=== PATIENT | male | born 1950 | race Caucasian/White ===

== ENCOUNTER 2018-08-19 17:23 | Inpatient (IN) | payer OTHER ==
--- NOTE | 2018-08-19 18:03 | PDOC ---
Attending Attestation - HPI HPI: 08/19/18 20:04 The patient is a 68 year old male, with a significant past medical history of bipolar disorder and depression, who presents to the ED complaining of fever, nausea, vomit and decreased appetite for the last week. He also reports that he has noticed decreased bowel movements and decreased PO intake during this time frame. She describes her vomit as nonbloody and nonbilious. The patient denies chest pain, shortness of breath, headache and dizziness. Denies dysuria, frequency, urgency and hematuria. Allergies: None Past surgical history: None reported Social History: Alcoohol use. - Physicial Exam PE: 08/19/18 20:04 Constitutional: Awake, alert, oriented. No acute distress. (+) Hot to touch. Head: Normocephalic. Atraumatic Eyes: PERRL. EOMI. Conjunctivae are not pale. ENT: (+) Dry Mucous membrane. Posterior pharynx without exudates or erythema. Uvula midline. Neck: Supple. Full ROM. No lymphadenopathy. Cardiovascular: (+) Tachycardia. Regular rhythm. S1, S2 regular. Distal pulses are 2+ and symmetric. Pulmonary/Chest: No evidence of respiratory distress. Clear to auscultation bilaterally No wheezing, rales or rhonchi. Abdominal: (+) Diffusely mildly tender. Soft and non-distended. No rebound, guarding or rigidity. No organomegaly. No palpable masses. Good bowel sounds. Back: No CVA tenderness. Musculoskeletal: No edema. No cyanosis. No clubbing. Full range of motion in all extremities. Nocalf tenderness. Radial/pedal pulses are intact and 2+ bilaterally Skin: Skin is warm and dry. No petechiae. No purpura. Neurological: Alert and oriented to person, place, and time. Cranial nerves II -XII are grossly intact. Normal speech. Strength is grossly symmetric. No sensory deficits. Psychiatric: Good eye contact. Normal interaction, affect and behavior. <Bebo Yanes - Last Filed: 08/19/18 20:04> - Resident Resident Name: Rebecca Gleason - ED Attending Attestation I have performed the following: I have examined & evaluated the patient, The case was reviewed & discussed with the resident, I agree w/resident's findings & plan, Exceptions are as noted - Critical Care Time Total Critical Care Time: 35 Critical Care Statement: The care of this patient involved high complexity decision making to prevent further life threatening deterioration of the patient 's condition and/or to evaluate & treat vital organ system(s) failure or risk of failure. - Medical Decision Making 08/19/18 18:03 I, Dr. Sun Schwab, DO, attest that this document has been prepared under my direction and personally reviewed by me in its entirety. I further attest, that it accurately reflects all work, treatment, procedures and medical decision -making performed by me. 08/19/18 19:07 a/p: 68yo male with hx of bipolar and FMF presents with a week of fever, n/v, decreased bm, decreased po intake -concern for FMF flair up vs viral syndrome vs bowel obstruction -will send cultures, labs, ekg, cxr, ct abd/pelvis -will start ivf hydration -will send flu -will monitor and reassess 08/19/18 19:17 no acute findings on cxr labs pending 08/19/18 23:25 pt with SIRS upon arrival pt with UTI pt with ff in the intraabd cavity pt with hx of FMF SEPSIS from UTI and FMF will admit and place on IV abx 08/19/18 23:25 pt updated on labs and imaging will admit to [facility] 08/19/18 23:48 case discussed with [facility] who accepts the patient to service <Sun Schwab - Last Filed: 08/19/18 23:48>
[2018-08-19] MEDS ORDERED: SODIUM CHLORIDE 0.9% 1000 ML INFUS.BAG IV STA (18:23)
--- NOTE | 2018-08-19 18:23 | PDOC ---
History of Present Illness <Rebecca Gleason - Last Filed: 08/19/18 18:23> <Sun Schwab - Last Filed: 08/19/18 23:27> - General Chief Complaint: SIRS, Suspected/Possible Stated Complaint: FAMILIAL MEDIETRRANEAN FEVER Time Seen by Provider: 08/19/18 18:02 Past History - Past Medical History COPD: No CHF: No Psychiatric Problems: Yes (bipolar and depression) - Suicide/Smoking/Psychosocial Hx Smoking History: Never smoked Have you smoked in the past 12 months: No Number of Cigarettes Smoked Daily: 2 Information on smoking cessation initiated: No Hx Alcohol Use: No Drug/Substance Use Hx: No Substance Use Type: Alcohol <Rebecca Gleason - Last Filed: 08/19/18 18:23> <Sun Schwab - Last Filed: 08/19/18 23:27> - Past Medical History Allergies/Adverse Reactions: Allergies Allergy/AdvReac Type Severity Reaction Status Date / Time No Known Allergies Allergy Verified 08/19/18 17:42 *Physical Exam - Vital Signs Last Vital Signs Temp Pulse Resp BP Pulse Ox 102.1 F H 95 H 16 136/73 100 08/19/18 17:23 08/19/18 17:23 08/19/18 17:23 08/19/18 17:23 08/19/18 17:23 <Rebecca Gleason - Last Filed: 08/19/18 18:23> - Vital Signs Last Vital Signs Temp Pulse Resp BP Pulse Ox 102.1 F H 95 H 16 136/73 100 08/19/18 17:23 08/19/18 17:23 08/19/18 17:23 08/19/18 17:23 08/19/18 17:23 <Sun Schwab - Last Filed: 08/19/18 23:27> ED Treatment Course - LABORATORY CBC & Chemistry Diagram: 08/19/18 18:30 08/19/18 18:30 - ADDITIONAL ORDERS Additional order review: Laboratory Results 08/19/18 08/19/18 08/19/18 22:42 18:40 18:30 PT with INR INR PTT (Actin FS) VBG pH POC VBG pCO2 POC VBG pO2 Mixed VBG HCO3 Sodium Potassium Chloride Carbon Dioxide Anion Gap BUN Creatinine Creat Clearance w eGFR Random Glucose Lactic Acid Calcium Total Bilirubin AST ALT Alkaline Phosphatase Creatine Kinase Creatine Kinase Index CK-MB (CK-2) Troponin I 0.02 C-Reactive Protein 18.5 H Total Protein Albumin Urine Color Vandana Urine Appearance Cloudy Urine pH 6.0 Ur Specific [place] 1.017 Urine Protein 2+ H Urine Glucose (UA) Negative Urine Ketones Negative Urine Blood 2+ H Urine Nitrite Positive Urine Bilirubin Negative Urine Urobilinogen 4.0 e.u/dl Ur Leukocyte Esterase 3+ H Urine WBC (Auto) 357 Urine RBC (Auto) 4 Ur Epithelial Cells Rare Urine Bacteria Many Urine Mucus Many Blood Type A POSITIVE Antibody Screen Negative 08/19/18 08/19/18 08/19/18 18:30 18:30 18:30 PT with INR INR PTT (Actin FS) VBG pH 7.49 H POC VBG pCO2 28.2 L POC VBG pO2 37.6 Mixed VBG HCO3 21.3 Sodium 135 L Potassium 4.1 Chloride 102 Carbon Dioxide 24 Anion Gap 8 BUN 27 H Creatinine 1.3 Creat Clearance w eGFR 55.23 Random Glucose 111 H Lactic Acid 1.5 Calcium 8.0 L Total Bilirubin 1.9 H AST 66 H ALT 51 Alkaline Phosphatase 112 Creatine Kinase 255 Creatine Kinase Index 0.3 CK-MB (CK-2) < 1.0 Troponin I C-Reactive Protein Total Protein 7.0 Albumin 3.2 L Urine Color Urine Appearance Urine pH Ur Specific [place] Urine Protein Urine Glucose (UA) Urine Ketones Urine Blood Urine Nitrite Urine Bilirubin Urine Urobilinogen Ur Leukocyte Esterase Urine WBC (Auto) Urine RBC (Auto) Ur Epithelial Cells Urine Bacteria Urine Mucus Blood Type Antibody Screen 08/19/18 18:30 PT with INR 14.90 H INR 1.26 H PTT (Actin FS) 28.3 VBG pH POC VBG pCO2 POC VBG pO2 Mixed VBG HCO3 Sodium Potassium Chloride Carbon Dioxide Anion Gap BUN Creatinine Creat Clearance w eGFR Random Glucose Lactic Acid Calcium Total Bilirubin AST ALT Alkaline Phosphatase Creatine Kinase Creatine Kinase Index CK-MB (CK-2) Troponin I C-Reactive Protein Total Protein Albumin Urine Color Urine Appearance Urine pH Ur Specific [place] Urine Protein Urine Glucose (UA) Urine Ketones Urine Blood Urine Nitrite Urine Bilirubin Urine Urobilinogen Ur Leukocyte Esterase Urine WBC (Auto) Urine RBC (Auto) Ur Epithelial Cells Urine Bacteria Urine Mucus Blood Type Antibody Screen 08/19/18 21:40 Influenza Types A,B Antigen - Final Nasopharyngeal Swab - Final 08/19/18 18:30 RBC 4.21 MCV 103.7 H MCHC 34.3 RDW 13.7 MPV 9.2 Neutrophils % 88.4 H Lymphocytes % 3.1 L Monocytes % 8.1 Eosinophils % 0.1 Basophils % 0.3 - Medications Given in the ED: ED Medications Discontinued Medications Generic Name Dose Route Start Last Admin Trade Name Carlos PRN Reason Stop Dose Admin Acetaminophen 1,000 mg 08/19/18 18:24 08/19/18 18:57 Ofirmev Injection - IVPB 08/19/18 18:25 1,000 mg ONCE ONE Administration Sodium Chloride 3,198 ml 08/19/18 18:23 08/19/18 18:57 Normal Saline - 30 ml/kg (3198 ml) 08/19/18 18:24 3,198 ml IV Administration ONCE STA <Sun Schwab - Last Filed: 08/19/18 23:27> *DC/Admit/Observation/Transfer <Rebecca Gleason - Last Filed: 08/19/18 18:23> - Discharge Dispostion Decision to Admit order: Yes <Sun Schwab - Last Filed: 08/19/18 23:27> Diagnosis at time of Disposition: Sepsis, Familial Mediterranean fever - Discharge Dispostion Condition at time of disposition: Guarded
[2018-08-19] MEDS ORDERED: ACETAMINOPHEN 1000 MG/100 ML VIAL (NON FORMULARY) IVPB ONE (18:24)
[2018-08-19] MEDS ORDERED: ACETAMINOPHEN INJECTION 100 ML IVPB ONE (18:27)
[2018-08-19 18:55] LABS: BASO % 0.3 % (0-2.0); EOS % 0.1 % (0-4.5); HEMATOCRIT 43.6 % (35.4-49); LYMPH % 3.1 % (8-40); MCH 35.6 pg (25.7-33.7); MCHC 34.3 g/dl (32.0-35.9); MEAN CELL VOLUME 103.7 fl (80-96); MEAN PLT VOLUME 9.2 fl (7.5-11.1); MONO % 8.1 % (3.8-10.2); NEUT % 88.4 % (42.8-82.8); PLATELET COUNT 130 K/MM3 (134-434); RBC 4.21 M/mm3 (4.00-5.60); RDW 13.7 % (11.9-15.9); WHITE BLOOD COUNT 9.3 K/mm3 (4.0-10.0)
[2018-08-19 19:02] LABS: INR 1.26 (0.83-1.09); PROTHROMBIN TIME (PATIENT) 14.9 SEC (9.7-13.0)
[2018-08-19 19:05] LABS: ACTIVATED PTT 28.3 SECONDS (25.2-36.5)
[2018-08-19 19:23] LABS: VENOUS PC02 28.2 mmHg (38-52); VENOUS PH 7.49 (7.32-7.42); VENOUS PO2 37.6 mmHg (28-48)
[2018-08-19 19:27] LABS: ALBUMIN 3.2 g/dl (3.4-5.0); ALK PHOS 112 U/L (45-117); ANION GAP 8 MMOL/L (8-16); BILIRUBIN,TOTAL 1.9 mg/dL (0.2-1); BLOOD UREA NITROGEN 27 mg/dL (7-18); CHLORIDE 102 mmol/L (98-107); CO2 24 mmol/L (21-32); CREATININE 1.3 mg/dL (0.55-1.3); GLUCOSE,RANDOM 111 mg/dL (74-106); POTASSIUM 4.1 mmol/L (3.5-5.1); SGOT/AST 66 U/L (15-37); SGPT/ALT 51 U/L (13-61); SODIUM 135 mmol/L (136-145)
[2018-08-19 23:04] LABS: URINE APPEARANCE CLOUDY; URINE BILIRUBIN NEGATIVE (<2.0 mg/dL); URINE COLOR AMBER; URINE GLUCOSE (UA) NEGATIVE (NEGATIVE); URINE KETONE NEGATIVE (NEGATIVE); URINE LEUK ESTERASE 3+ (NEGATIVE); URINE NITRITE POSITIVE (NEGATIVE); URINE PROTEIN 2+ (NEGATIVE); URINE UROBILINOGEN 4.0 E.U/dl mg/dL (0.2-1.0)
[2018-08-19 23:07] LABS: EPI CELLS RARE /HPF (FEW); URINE BACTERIA MANY /hpf (NONE SEEN); URINE MUCUS MANY
[2018-08-19 23:20] LABS: PLATELET ESTIMATE SLT DECREASE
--- NOTE | 2018-08-20 00:46 | HP ---
CHIEF COMPLAINT: fever, nausea, vomiting, decreased appetite for 1 week PCP: Dr. 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 He states that he had 1 episode of nonbloody, nonbilious vomiting. He also admits to abdominal pain that has resolved and worsening tremors over the past 2 years. Of note, pt reports that he has had similar symptoms in the 1970s prior to being treated for FMF after which he was treated with Colchicine and has not had a similar episode until today. He reports generalized weakness in which he could not stand up and also a shuffling gait. Upon exam, he admits to symptomatic improvement since being treated in the ED. Denies schaefer/d, nausea, sob , dyspnea, abd pain. ER course was notable for: (1) BP 136/73, T 102.1, U/A showed 2+ Pro, 2+ blood, 3+ LE (2) IV Tylenol, Levaquin, NS given (3) Recent Travel: Has traveled to [place] 2x within the past 2 months PAST MEDICAL HISTORY: FMF bipolar d/o depression HLD herpes PAST SURGICAL HISTORY: appendectomy L shoulder dx Social History: Smoking: quit 35 years ago, smokes cigars weekly Alcohol: denies due to hx of gout Drugs: denies Family History: Father: bladder cx Mother: ALS Sister: MS Sister: FMF, mild form Allergies No Known Allergies Allergy (Verified 08/19/18 17:42) HOME MEDICATIONS: REVIEW OF SYSTEMS CONSTITUTIONAL: +fever, chills, generalized weakness, loss of appetite Absent: diaphoresis, , malaise, , weight change HEENT: Absent: rhinorrhea, nasal congestion, throat pain, throat swelling, difficulty swallowing, mouth swelling, ear pain, eye pain, visual changes CARDIOVASCULAR: Absent: chest pain, syncope, palpitations, irregular heart rate, lightheadedness , peripheral edema RESPIRATORY: Absent: cough, shortness of breath, dyspnea with exertion, orthopnea, wheezing, stridor, hemoptysis GASTROINTESTINAL: Absent: abdominal pain, abdominal distension, nausea, vomiting, diarrhea, constipation, melena, hematochezia GENITOURINARY: Absent: dysuria, frequency, urgency, hesitancy, hematuria, flank pain, genital pain MUSCULOSKELETAL: Absent: myalgia, arthralgia, joint swelling, back pain, neck pain SKIN: Absent: rash, itching, pallor HEMATOLOGIC/IMMUNOLOGIC: Absent: easy bleeding, easy bruising, lymphadenopathy, frequent infections ENDOCRINE: Absent: unexplained weight gain, unexplained weight loss, heat intolerance, cold intolerance NEUROLOGIC: +shuffling gait Absent: headache, focal weakness or paresthesias, dizziness, , seizure, mental status changes, bladder or bowel incontinence PHYSICAL EXAMINATION Vital Signs - 24 hr 08/19/18 08/19/18 08/20/18 17:23 20:23 00:26 Temperature 102.1 F H 98.3 F Pulse Rate 95 H Pulse Rate [ 89 Apical] Respiratory 16 19 Rate Blood Pressure 136/73 Blood Pressure 123/63 [Left Arm] O2 Sat by Pulse 100 99 99 Oximetry (%) GENERAL: AAOx3. NAD. Resting comfortably. HEENT: AT/NC. EOMI. DAYNE. Dry mucus membranes. NECK: Supple, no LAD/JVD. LUNGS: CTA B/L. No w/r/r noted. Symmetric chest rise. No accessory muscle use. HEART: RRR. Normal S1, S2. No murmurs noted. ABDOMEN: Soft, NT. Mildly distended. +BS in all 4 Q's. No masses or bruits noted. +fluid wave noted. +shifting dullness. MUSCULOSKELETAL: No pedal edema. 5/5 muscle strength in b/l u/l extremities. No CVA tenderness. NEUROLOGICAL: Normal speech. CN II-XII intact. PSYCHIATRIC: Cooperative. Good eye contact. Appropriate mood and affect. SKIN: Warm, dry, normal turgor, normal capillary refill. Laboratory Results - last 24 hr 08/19/18 08/19/18 08/19/18 18:30 18:30 18:30 WBC 9.3 RBC 4.21 Hgb 15.0 Hct 43.6 MCV 103.7 H MCH 35.6 H MCHC 34.3 RDW 13.7 Plt Count 130 L MPV 9.2 Absolute Neuts (auto) 8.3 H Total Counted 100 Neutrophils % 88.4 H Neutrophils % (Manual) 87.0 H Band Neutrophils % 4.0 Lymphocytes % 3.1 L Lymphocytes % (Manual) 2.0 L Monocytes % 8.1 Monocytes % (Manual) 5 Eosinophils % 0.1 Basophils % 0.3 Promyelocytes % (Man) 1 Nucleated RBC % 0 Platelet Estimate Slt decrease ESR PT with INR 14.90 H INR 1.26 H PTT (Actin FS) 28.3 VBG pH 7.49 H POC VBG pCO2 28.2 L POC VBG pO2 37.6 Mixed VBG HCO3 21.3 Sodium Potassium Chloride Carbon Dioxide Anion Gap BUN Creatinine Creat Clearance w eGFR Random Glucose Lactic Acid Calcium Total Bilirubin AST ALT Alkaline Phosphatase Creatine Kinase Creatine Kinase Index CK-MB (CK-2) Troponin I C-Reactive Protein Total Protein Albumin Urine Color Urine Appearance Urine pH Ur Specific [place] Urine Protein Urine Glucose (UA) Urine Ketones Urine Blood Urine Nitrite Urine Bilirubin Urine Urobilinogen Ur Leukocyte Esterase Urine WBC (Auto) Urine RBC (Auto) Ur Epithelial Cells Urine Bacteria Urine Mucus Blood Type Antibody Screen 08/19/18 08/19/18 08/19/18 18:30 18:30 18:30 WBC RBC Hgb Hct MCV MCH MCHC RDW Plt Count MPV Absolute Neuts (auto) Total Counted Neutrophils % Neutrophils % (Manual) Band Neutrophils % Lymphocytes % Lymphocytes % (Manual) Monocytes % Monocytes % (Manual) Eosinophils % Basophils % Promyelocytes % (Man) Nucleated RBC % Platelet Estimate ESR PT with INR INR PTT (Actin FS) VBG pH POC VBG pCO2 POC VBG pO2 Mixed VBG HCO3 Sodium 135 L Potassium 4.1 Chloride 102 Carbon Dioxide 24 Anion Gap 8 BUN 27 H Creatinine 1.3 Creat Clearance w eGFR 55.23 Random Glucose 111 H Lactic Acid 1.5 Calcium 8.0 L Total Bilirubin 1.9 H AST 66 H ALT 51 Alkaline Phosphatase 112 Creatine Kinase 255 Creatine Kinase Index 0.3 CK-MB (CK-2) < 1.0 Troponin I 0.02 C-Reactive Protein 18.5 H Total Protein 7.0 Albumin 3.2 L Urine Color Urine Appearance Urine pH Ur Specific [place] Urine Protein Urine Glucose (UA) Urine Ketones Urine Blood Urine Nitrite Urine Bilirubin Urine Urobilinogen Ur Leukocyte Esterase Urine WBC (Auto) Urine RBC (Auto) Ur Epithelial Cells Urine Bacteria Urine Mucus Blood Type Antibody Screen 08/19/18 08/19/18 08/19/18 18:30 18:40 22:42 WBC RBC Hgb Hct MCV MCH MCHC RDW Plt Count MPV Absolute Neuts (auto) Total Counted Neutrophils % Neutrophils % (Manual) Band Neutrophils % Lymphocytes % Lymphocytes % (Manual) Monocytes % Monocytes % (Manual) Eosinophils % Basophils % Promyelocytes % (Man) Nucleated RBC % Platelet Estimate ESR 80 H PT with INR INR PTT (Actin FS) VBG pH POC VBG pCO2 POC VBG pO2 Mixed VBG HCO3 Sodium Potassium Chloride Carbon Dioxide Anion Gap BUN Creatinine Creat Clearance w eGFR Random Glucose Lactic Acid Calcium Total Bilirubin AST ALT Alkaline Phosphatase Creatine Kinase Creatine Kinase Index CK-MB (CK-2) Troponin I C-Reactive Protein Total Protein Albumin Urine Color Vandana Urine Appearance Cloudy Urine pH 6.0 Ur Specific [place] 1.017 Urine Protein 2+ H Urine Glucose (UA) Negative Urine Ketones Negative Urine Blood 2+ H Urine Nitrite Positive Urine Bilirubin Negative Urine Urobilinogen 4.0 e.u/dl Ur Leukocyte Esterase 3+ H Urine WBC (Auto) 357 Urine RBC (Auto) 4 Ur Epithelial Cells Rare Urine Bacteria Many Urine Mucus Many Blood Type A POSITIVE Antibody Screen Negative ASSESSMENT/PLAN: 68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 #sepsis 2/2 UTI; Initial exam, pt temp 102.1, HR 95. Pt complains of urinary urgency w/ incontinence. UA showed 3+ LE. -Started on Levaquin, will continue w/ Ceftriaxone 1gm IV QD due to pt's age -Tylenol PRN for fever -Protonix 40 mg PO QD -blood/urine cx ordered -Tylenol 650 mg PO Q6H PRN for fever -ID consult -NPO #Familial Mediterranean Fever, r/o FMF exacerbation; Pt states he has had a similar episode in the past prior to being treated w/ Colchicine. -resume home med Colchicine -Tylenol PRN for fever #HLD -resume home med Crestor 5 mg PO HS #Hx of depression -continue home meds #Hx of gout -hold home med Allopurinol #DVT ppx -Lovenox 40 mg SQ QD #FEN -NS @ 100 -recheck lytes in AM -NPO dispo -admit to med-surg Visit type - Emergency Visit Emergency Visit: Yes ED Registration Date: 08/19/18 Care time: The patient presented to the Emergency Department on the above date and was hospitalized for further evaluation of their emergent condition. - New Patient This patient is new to me today: Yes Date on this admission: 08/20/18 - Critical Care Critical Care patient: No
[2018-08-20] MEDS ORDERED: MAG HYDROX/AL HYDROX/SIMETH -MYLANTA- ORAL SUSPENSION PO ONE (05:31)
[2018-08-20] MEDS ORDERED: MAG HYDROX/AL HYDROX/SIMETH 30 ML UNIT-DOSE CUP ONE (05:40)
[2018-08-20] MEDS ORDERED: MAG HYDROX/AL HYDROX/SIMETH 30 ML UNIT-DOSE CUP PO ONE (06:20)
[2018-08-20] MEDS ORDERED: ACETAMINOPHEN 325 MG TABLET (FP) PO PRN (06:26)
--- NOTE | 2018-08-20 07:25 | PN ---
Teaching Attending Note Name of Resident: Tuyet Trujillo ATTENDING PHYSICIAN STATEMENT I saw and evaluated the patient. I reviewed the resident's note and discussed the case with the resident. I agree with the resident's findings and plan as documented. 68 y/o M presenting to Ed with abdominal pain and diarrhea. PMH of Familial Mediterranean fever, gout, herpes and bipolar. On examination in mild distress, abdomen soft NT, BS+, no guarding or rebound. No CVA tenderness. UA 3+ LE. Admitted for sepsis secondary to UTI started on levofloxacin and will switch to ceftriaxone, continue IVF NS, protonix daily, tylenol prn for fever and pain. Case d/w residents and plans agreed on.
[2018-08-20 08:05] LABS: BASO % 0.3 % (0-2.0); EOS % 0.3 % (0-4.5); HEMATOCRIT 37.7 % (35.4-49); HEMOGLOBIN 12.7 GM/dL (11.7-16.9); LYMPH % 7.4 % (8-40); MCH 34.6 pg (25.7-33.7); MCHC 33.7 g/dl (32.0-35.9); MEAN CELL VOLUME 102.9 fl (80-96); MEAN PLT VOLUME 9.2 fl (7.5-11.1); MONO % 13.7 % (3.8-10.2); NEUT % 78.3 % (42.8-82.8); PLATELET COUNT 102 K/MM3 (134-434); RBC 3.67 M/mm3 (4.00-5.60); RDW 13.8 % (11.9-15.9); WHITE BLOOD COUNT 8.2 K/mm3 (4.0-10.0)
[2018-08-20 08:32] LABS: ALBUMIN 2.4 g/dl (3.4-5.0); ALK PHOS 88 U/L (45-117); ANION GAP 6 MMOL/L (8-16); BILIRUBIN,TOTAL 1.2 mg/dL (0.2-1); BLOOD UREA NITROGEN 21 mg/dL (7-18); CALCIUM 7.5 mg/dL (8.5-10.1); CHLORIDE 108 mmol/L (98-107); CO2 24 mmol/L (21-32); GLUCOSE,RANDOM 107 mg/dL (74-106); POTASSIUM 3.5 mmol/L (3.5-5.1); SGOT/AST 48 U/L (15-37); SGPT/ALT 44 U/L (13-61); SODIUM 138 mmol/L (136-145); TOT PROT 5.5 g/dl (6.4-8.2)
[2018-08-20] MEDS: SODIUM CHLORIDE 1,000 ML IV SCH ×2 (09:55→21:09)
[2018-08-20] MEDS ORDERED: PANTOPRAZOLE 40 MG TABLET (FP) PO SCH (10:00)
[2018-08-20] MEDS: ENOXAPARIN NA (PORCINE) 40 MG/0.4 ML DISP.SYRIN SQ SCH (11:08)
[2018-08-20] MEDS ORDERED: CEFTRIAXONE 1 GM in DEXTROSE 5%-WATER 100 ML IVPB ONE (11:30)
[2018-08-20 11:31] VITALS: BMI 32.8
[2018-08-20] MEDS ORDERED: COLCHICINE 0.6 MG TABLET (FP) PO ONE (12:10)
[2018-08-20] MEDS ORDERED: DEXTROSE 5%-WATER 100 ML IVPB ONE (12:19)
[2018-08-20] MEDS ORDERED: cefTRIAXone SODIUM 1 GM VIAL ONE (12:19)
--- NOTE | 2018-08-20 16:04 | CON.ID ---
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 He states that he had 1 episode of nonbloody, nonbilious vomiting. He also admits to abdominal pain that has resolved and worsening tremors over the past 2 years. . He reports generalized weakness in which he could not stand up and also a shuffling gait. Upon exam, he admits to symptomatic improvement since being treated in the ED. Denies schaefer/d, nausea, sob, dyspnea, abd pain. currently he feels better, in the room patient mentions that his chills were very bad and the fever was continuos currently he feels better - History Source History Provided By: Patient Limitations to Obtaining History: No Limitations - Alcohol/Substance Use Hx Alcohol Use: No - Smoking History Smoking history: Former smoker Have you smoked in the past 12 months: No Aproximately how many cigarettes per day: 2 Home Medications - Allergies Allergies/Adverse Reactions: Allergies Allergy/AdvReac Type Severity Reaction Status Date / Time No Known Allergies Allergy Verified 08/19/18 17:42 - Home Medications Home Medications: Ambulatory Orders Allopurinol [Zyloprim -] 200 mg PO DAILY 08/20/18 Aspirin 81 mg PO 08/20/18 Bupropion HCl [Wellbutrin Xl] 300 mg PO DAILY 08/20/18 Cholecalciferol (Vitamin D3) [Vitamin D3 -] 800 unit PO DAILY 08/20/18 Colchicine 0.6 mg PO BID 08/20/18 Cyanocobalamin (Vitamin B-12) [Vitamin B12] 2,500 mcg PO DAILY 08/20/18 Quetiapine Fumarate [Seroquel -] 25 mg PO HS 08/20/18 Rosuvastatin Calcium [Crestor] 5 mg PO HS 08/20/18 Valacyclovir HCl [Valtrex] 1,000 mg PO DAILY 08/20/18 Review of Systems - Review of Systems Constitutional: reports: Chills, Fever, Weakness Eyes: reports: No Symptoms HENT: reports: No Symptoms Neck: reports: No Symptoms Cardiovascular: reports: No Symptoms Gastrointestinal: reports: Abdominal Pain, Nausea Genitourinary: reports: Burning Musculoskeletal: reports: No Symptoms Integumentary: reports: No Symptoms Neurological: reports: No Symptoms Endocrine: reports: No Symptoms Hematology/Lymphatic: reports: No Symptoms Psychiatric: reports: No Symptoms Physical Exam Vital Signs: Vital Signs Temperature 97.5 F L 08/20/18 14:41 Pulse Rate 72 08/20/18 14:41 Respiratory Rate 20 08/20/18 14:41 Blood Pressure 139/72 08/20/18 14:41 O2 Sat by Pulse Oximetry (%) 98 08/20/18 11:45 Constitutional: Yes: Well Nourished, No Distress, Calm Eyes: Yes: Conjunctiva Clear Cardiovascular: Yes: Regular Rate and Rhythm Respiratory: Yes: Regular, CTA Bilaterally Gastrointestinal: Yes: Normal Bowel Sounds, Soft Musculoskeletal: Yes: WNL Extremities: Yes: WNL Neurological: Yes: Alert, Oriented Psychiatric: Yes: Alert, Oriented Labs: CBC, BMP 08/20/18 07:40 08/20/18 07:40 Imaging - Results Chest X-ray: Report Reviewed, Image Reviewed Cat Scan: Report Reviewed, Image Reviewed Assessment/Plan patient coming wiht symptoms for nearly one week now feeling better after getting abx patient probably has urinary infection which might have give rise to his symptoms fever weakness r/o uti chills bipolar disorder plan continue abx await for all cx reports rest as per the team
--- NOTE | 2018-08-20 17:46 | PN ---
Physical Exam: SUBJECTIVE: Patient seen and examined at the bedside. denies pain, denies malaise. asking to go home. willing to stay until tomorrow. OBJECTIVE: Vital Signs Period Temp Pulse Resp BP Sys/Delgado Pulse Ox Last 24 Hr 97.5 F-100.2 F 72-92 19-20 108-144/53-72 98-99 GENERAL: The patient is awake, alert, and fully oriented, in no acute distress. HEAD: Normal with no signs of trauma. EYES: PERRL, extraocular movements intact, sclera anicteric, conjunctiva clear. No ptosis. ENT: Ears normal, nares patent, oropharynx clear without exudates, moist mucous membranes. EXTREMITIES: ,no edema. NEUROLOGICAL:Normal speech, gait not observed. PSYCH: Normal mood, normal affect. SKIN: Warm, dry, normal turgor, no rashes or lesions noted Laboratory Results - last 24 hr 08/19/18 08/19/18 08/19/18 07:40 18:30 18:30 WBC 9.3 RBC 4.21 Hgb 15.0 Hct 43.6 MCV 103.7 H MCH 35.6 H MCHC 34.3 RDW 13.7 Plt Count 130 L MPV 9.2 Absolute Neuts (auto) 8.3 H Total Counted 100 Neutrophils % 88.4 H Neutrophils % (Manual) 87.0 H Band Neutrophils % 4.0 Lymphocytes % 3.1 L Lymphocytes % (Manual) 2.0 L Monocytes % 8.1 Monocytes % (Manual) 5 Eosinophils % 0.1 Basophils % 0.3 Promyelocytes % (Man) 1 Nucleated RBC % 0 Platelet Estimate Slt decrease ESR PT with INR 14.90 H INR 1.26 H PTT (Actin FS) 28.3 VBG pH POC VBG pCO2 POC VBG pO2 Mixed VBG HCO3 Sodium Potassium Chloride Carbon Dioxide Anion Gap BUN Creatinine Creat Clearance w eGFR Random Glucose Lactic Acid Calcium Total Bilirubin AST ALT Alkaline Phosphatase Creatine Kinase Creatine Kinase Index CK-MB (CK-2) Troponin I C-Reactive Protein Total Protein Albumin Urine Color Urine Appearance Urine pH Ur Specific [place] Urine Protein Urine Glucose (UA) Urine Ketones Urine Blood Urine Nitrite Urine Bilirubin Urine Urobilinogen Ur Leukocyte Esterase Urine WBC (Auto) Urine RBC (Auto) Ur Epithelial Cells Urine Bacteria Urine Mucus Blood Type A POSITIVE Antibody Screen 08/19/18 08/19/18 08/19/18 18:30 18:30 18:30 WBC RBC Hgb Hct MCV MCH MCHC RDW Plt Count MPV Absolute Neuts (auto) Total Counted Neutrophils % Neutrophils % (Manual) Band Neutrophils % Lymphocytes % Lymphocytes % (Manual) Monocytes % Monocytes % (Manual) Eosinophils % Basophils % Promyelocytes % (Man) Nucleated RBC % Platelet Estimate ESR PT with INR INR PTT (Actin FS) VBG pH 7.49 H POC VBG pCO2 28.2 L POC VBG pO2 37.6 Mixed VBG HCO3 21.3 Sodium 135 L Potassium 4.1 Chloride 102 Carbon Dioxide 24 Anion Gap 8 BUN 27 H Creatinine 1.3 Creat Clearance w eGFR 55.23 Random Glucose 111 H Lactic Acid 1.5 Calcium 8.0 L Total Bilirubin 1.9 H AST 66 H ALT 51 Alkaline Phosphatase 112 Creatine Kinase 255 Creatine Kinase Index 0.3 CK-MB (CK-2) < 1.0 Troponin I C-Reactive Protein Total Protein 7.0 Albumin 3.2 L Urine Color Urine Appearance Urine pH Ur Specific [place] Urine Protein Urine Glucose (UA) Urine Ketones Urine Blood Urine Nitrite Urine Bilirubin Urine Urobilinogen Ur Leukocyte Esterase Urine WBC (Auto) Urine RBC (Auto) Ur Epithelial Cells Urine Bacteria Urine Mucus Blood Type Antibody Screen 08/19/18 08/19/18 08/19/18 18:30 18:30 18:40 WBC RBC Hgb Hct MCV MCH MCHC RDW Plt Count MPV Absolute Neuts (auto) Total Counted Neutrophils % Neutrophils % (Manual) Band Neutrophils % Lymphocytes % Lymphocytes % (Manual) Monocytes % Monocytes % (Manual) Eosinophils % Basophils % Promyelocytes % (Man) Nucleated RBC % Platelet Estimate ESR 80 H PT with INR INR PTT (Actin FS) VBG pH POC VBG pCO2 POC VBG pO2 Mixed VBG HCO3 Sodium Potassium Chloride Carbon Dioxide Anion Gap BUN Creatinine Creat Clearance w eGFR Random Glucose Lactic Acid Calcium Total Bilirubin AST ALT Alkaline Phosphatase Creatine Kinase Creatine Kinase Index CK-MB (CK-2) Troponin I 0.02 C-Reactive Protein 18.5 H Total Protein Albumin Urine Color Urine Appearance Urine pH Ur Specific [place] Urine Protein Urine Glucose (UA) Urine Ketones Urine Blood Urine Nitrite Urine Bilirubin Urine Urobilinogen Ur Leukocyte Esterase Urine WBC (Auto) Urine RBC (Auto) Ur Epithelial Cells Urine Bacteria Urine Mucus Blood Type A POSITIVE Antibody Screen Negative 08/19/18 08/20/18 08/20/18 22:42 07:40 07:40 WBC 8.2 RBC 3.67 L Hgb 12.7 Hct 37.7 MCV 102.9 H MCH 34.6 H MCHC 33.7 RDW 13.8 Plt Count 102 L D MPV 9.2 Absolute Neuts (auto) 6.4 Total Counted Neutrophils % 78.3 Neutrophils % (Manual) Band Neutrophils % Lymphocytes % 7.4 L D Lymphocytes % (Manual) Monocytes % 13.7 H Monocytes % (Manual) Eosinophils % 0.3 D Basophils % 0.3 Promyelocytes % (Man) Nucleated RBC % 0 Platelet Estimate ESR PT with INR INR PTT (Actin FS) VBG pH POC VBG pCO2 POC VBG pO2 Mixed VBG HCO3 Sodium 138 Potassium 3.5 Chloride 108 H Carbon Dioxide 24 Anion Gap 6 L BUN 21 H Creatinine 1.0 Creat Clearance w eGFR > 60 Random Glucose 107 H Lactic Acid Calcium 7.5 L Total Bilirubin 1.2 H AST 48 H ALT 44 Alkaline Phosphatase 88 Creatine Kinase Creatine Kinase Index CK-MB (CK-2) Troponin I C-Reactive Protein Total Protein 5.5 L Albumin 2.4 L Urine Color Vandana Urine Appearance Cloudy Urine pH 6.0 Ur Specific [place] 1.017 Urine Protein 2+ H Urine Glucose (UA) Negative Urine Ketones Negative Urine Blood 2+ H Urine Nitrite Positive Urine Bilirubin Negative Urine Urobilinogen 4.0 e.u/dl Ur Leukocyte Esterase 3+ H Urine WBC (Auto) 357 Urine RBC (Auto) 4 Ur Epithelial Cells Rare Urine Bacteria Many Urine Mucus Many Blood Type Antibody Screen Active Medications Generic Name Dose Route Start Last Admin Trade Name Carlos PRN Reason Stop Dose Admin Acetaminophen 650 mg 08/20/18 06:26 Tylenol - PO Q4H PRN FEVER Enoxaparin Sodium 40 mg 08/20/18 10:00 08/20/18 11:08 Lovenox - SQ 40 mg DAILY [facility] Administration Sodium Chloride 1,000 mls @ 100 mls/hr 08/20/18 07:00 08/20/18 09:55 Normal Saline - IV 100 mls/hr ASDIR [facility] Administration Ceftriaxone Sodium 1 gm/ 50 mls @ 100 mls/hr 08/21/18 10:00 Dextrose IVPB DAILY [facility] Protocol Pantoprazole Sodium 40 mg 08/20/18 10:00 08/20/18 11:08 Protonix - PO 40 mg DAILY [facility] Administration ASSESSMENT/PLAN: Patient is a 68 year old male with a significant past medical history of Familial Mediterranean fever, bipolar, depression, hyperlipidemia who presents to the ED with abdominal pain, vomiting, diarrhea. He was admitted for UTI. Urosepsis. Presented with fever 102F and heart rate 95. patient c/o of urinary urgency, incontinence. UA showed 3+ leuk est. Given IV levaquin overnight. Started on Ceftriaxone. Has been afebrile since admission Blood culture ngtd urine culture pending ID consulted for further recommendations. Nausea/vomiting/diarrhea. resolved. diet advanced. Familial mediterrenean fever. On Colchicine 1.2mg daily Hld On crestor fen/prophy tolerating PO advanced diet monitor electrolytes lovenox Visit type - Emergency Visit Emergency Visit: Yes ED Registration Date: 08/19/18 Care time: The patient presented to the Emergency Department on the above date and was hospitalized for further evaluation of their emergent condition. - New Patient This patient is new to me today: Yes Date on this admission: 08/20/18 - Critical Care Critical Care patient: No - Discharge Referral Referred to [facility] Med [facility].C[facility] No
--- NOTE | 2018-08-20 22:03 | EKG ---
Test Reason : Blood Pressure : / mmHG Vent. Rate : 097 BPM Atrial Rate : 097 BPM P-R Int : 150 ms QRS Dur : 104 ms QT Int : 352 ms P-R-T Axes : 042 -12 025 degrees QTc Int : 447 ms NORMAL SINUS RHYTHM NORMAL ECG NO PREVIOUS ECGS AVAILABLE Confirmed by EVERTON BURKS MD ([id number]) on 08/20/2018 10:02:57 PM Referred By: Confirmed By:EVERTON BURKS MD
[2018-08-21] MEDS: SODIUM CHLORIDE 1,000 ML IV SCH (07:10)
[2018-08-21 07:34] LABS: BASO % 0.6 % (0-2.0); HEMATOCRIT 38.1 % (35.4-49); HEMOGLOBIN 12.9 GM/dL (11.7-16.9); LYMPH % 14.9 % (8-40); MCH 35.1 pg (25.7-33.7); MCHC 33.8 g/dl (32.0-35.9); MEAN CELL VOLUME 103.7 fl (80-96); MEAN PLT VOLUME 9.6 fl (7.5-11.1); MONO % 19.5 % (3.8-10.2); PLATELET COUNT 100 K/MM3 (134-434); RBC 3.67 M/mm3 (4.00-5.60); RDW 13.9 % (11.9-15.9); WHITE BLOOD COUNT 8.3 K/mm3 (4.0-10.0)
[2018-08-21 08:09] LABS: ALBUMIN 2.5 g/dl (3.4-5.0); ALK PHOS 94 U/L (45-117); ANION GAP 7 MMOL/L (8-16); BLOOD UREA NITROGEN 14 mg/dL (7-18); CALCIUM 7.5 mg/dL (8.5-10.1); CHLORIDE 106 mmol/L (98-107); CO2 26 mmol/L (21-32); CREATININE 0.9 mg/dL (0.55-1.3); GLUCOSE,RANDOM 126 mg/dL (74-106); POTASSIUM 3.5 mmol/L (3.5-5.1); SGOT/AST 80 U/L (15-37); SGPT/ALT 73 U/L (13-61); SODIUM 138 mmol/L (136-145); TOT PROT 5.6 g/dl (6.4-8.2)
[2018-08-21] MEDS ORDERED: cefTRIAXone SODIUM 1 GM VIAL ONE (09:58)
[2018-08-21] MEDS ORDERED: DEXTROSE 5%-WATER - 50 ML IVPB ONE (09:59)
[2018-08-21] MEDS ORDERED: CEFTRIAXONE 1 GM in DEXTROSE 5%-WATER - 50 ML IVPB SCH (10:00)
[2018-08-21] MEDS ORDERED: COLCHICINE 0.6 MG TABLET (FP) PO SCH (10:00)
[2018-08-21] MEDS: ENOXAPARIN NA (PORCINE) 40 MG/0.4 ML DISP.SYRIN SQ SCH (10:07)
--- NOTE | 2018-08-21 10:40 | PN ---
Progress Note, Physician History of Present Illness: patient stable urine showing positive cx organism awaited - Current Medication List Current Medications: Active Medications Acetaminophen (Tylenol -) 650 mg PO Q4H PRN PRN Reason: FEVER Colchicine (Colcrys -) 1.2 mg PO DAILY [facility] Last Admin: 08/21/18 10:06 Dose: 1.2 mg Enoxaparin Sodium (Lovenox -) 40 mg SQ DAILY [facility] Last Admin: 08/21/18 10:07 Dose: 40 mg Sodium Chloride (Normal Saline -) 1,000 mls @ 100 mls/hr IV ASDIR [facility] Last Admin: 08/21/18 07:10 Dose: 100 mls/hr Ceftriaxone Sodium 1 gm/ (Dextrose) 50 mls @ 100 mls/hr IVPB DAILY [facility]; Protocol Last Admin: 08/21/18 10:07 Dose: 100 mls/hr - Objective Vital Signs: Vital Signs Temperature 97.5 F L 08/21/18 10:00 Pulse Rate 64 08/21/18 10:00 Respiratory Rate 20 08/21/18 10:00 Blood Pressure 128/63 08/21/18 10:00 O2 Sat by Pulse Oximetry (%) 98 08/20/18 21:00 Constitutional: Yes: No Distress, Calm Cardiovascular: Yes: Regular Rate and Rhythm Respiratory: Yes: Regular, CTA Bilaterally Gastrointestinal: Yes: Normal Bowel Sounds, Soft Musculoskeletal: Yes: WNL Extremities: Yes: WNL Neurological: Yes: Alert, Oriented Psychiatric: Yes: Alert, Oriented Labs: CBC, BMP 08/21/18 06:30 08/21/18 06:30 INR, PTT INR 1.26 (0.83-1.09) H 08/19/18 18:30 Assessment/Plan fever weakness uti chills bipolar disorder plan continue abx await for sensitivities and identification of the bacteria rest as per the team once we have the bacteria we can make the decision
[2018-08-21 14:53] LABS: ANISOCYTOSIS 0; MACROCYTOSIS 2+; PLATELET ESTIMATE DECREASED
[2018-08-21 15:28] VITALS: BP 144/65; PULSE 73; TEMP 97.8
--- NOTE | 2018-08-21 16:22 | DS ---
Physical Exam: SUBJECTIVE: Patient seen and examined, feels well. Wants to go home. Discussed with him that we are awaiting his urine culture results. Wants to leave. OBJECTIVE: Discussed with ID, will discharge on 5 more days of augmentin 875/125 bid. final urine cultures sensitivities pending Vital Signs Period Temp Pulse Resp BP Sys/Delgado Pulse Ox Last 24 Hr 97.5 F-98.3 F 64-74 20-72 105-144/50-82 98-98 PHYSICAL EXAM GENERAL: The patient is awake, alert, and fully oriented, in no acute distress. HEAD: Normal with no signs of trauma. EYES: PERRL, extraocular movements intact, sclera anicteric, conjunctiva clear. ENT: Ears normal, nares patent, oropharynx clear without exudates, moist mucous membranes. NECK: Trachea midline, full range of motion, supple. LUNGS: Breath sounds equal, clear to auscultation bilaterally, no wheezes, no crackles, no accessory muscle use. HEART: Regular rate and rhythm, S1, S2 without murmur, rub or gallop. ABDOMEN: Soft, nontender, nondistended, normoactive bowel sounds, no guarding, no rebound, no hepatosplenomegaly, no masses. EXTREMITIES: 2+ pulses, warm, well-perfused, no edema. NEUROLOGICAL: Cranial nerves II through XII grossly intact. Normal speech, gait not observed. PSYCH: Normal mood, normal affect. SKIN: Warm, dry, normal turgor, no rashes or lesions noted. LABS Laboratory Results - last 24 hr 08/21/18 08/21/18 06:30 06:30 WBC 8.3 RBC 3.67 L Hgb 12.9 Hct 38.1 MCV 103.7 H MCH 35.1 H MCHC 33.8 RDW 13.9 Plt Count 100 L MPV 9.6 Absolute Neuts (auto) 5.3 Neutrophils % 63.0 Neutrophils % (Manual) 66.0 D Band Neutrophils % 3.1 Lymphocytes % 14.9 D Lymphocytes % (Manual) 18.5 D Monocytes % 19.5 H Monocytes % (Manual) 12 H D Eosinophils % 2.0 D Eosinophils % (Manual) 0.0 Basophils % 0.6 Basophils % (Manual) 0.0 Myelocytes % (Man) 0 Promyelocytes % (Man) 0 D Blast Cells % (Manual) 0 Nucleated RBC % 0 Metamyelocytes 0 Hypochromia 0 Platelet Estimate Decreased Polychromasia 0 Poikilocytosis 0 Anisocytosis 0 Microcytosis 0 Macrocytosis 2+ Sodium 138 Potassium 3.5 Chloride 106 Carbon Dioxide 26 Anion Gap 7 L BUN 14 Creatinine 0.9 Creat Clearance w eGFR > 60 Random Glucose 126 H Calcium 7.5 L Total Bilirubin 1.0 AST 80 H ALT 73 H Alkaline Phosphatase 94 Total Protein 5.6 L Albumin 2.5 L HOSPITAL COURSE: Date of Admission:08/19/18 Date of Discharge: 08/21/18 Discharge Summary Reason For Visit: OSMANY FAMILIAL MEDITERRANEAN FEVER Current Active Problems Familial Mediterranean fever (Acute) Sepsis (Acute) Condition: Improved - Instructions Diet, Activity, Other Instructions: Mr Ferris: You will be sent home with a prescription of Augmentin 875/125 mg that has been called into you pharmacy. Take this antibiotic twice per day for 5 more days ( at 8am and 8pm. Please have your urine culture repeated with your primary care physician. Please follow up with the Abdominal CT scan findings as we discussed. You should have it repeated. Thank you [facility] [phone] Disposition: HOME - Home Medications Comprehensive Discharge Medication List: Ambulatory Orders Allopurinol [Zyloprim -] 200 mg PO DAILY 08/20/18 Aspirin 81 mg PO 08/20/18 Bupropion HCl [Wellbutrin Xl] 300 mg PO DAILY 08/20/18 Cholecalciferol (Vitamin D3) [Vitamin D3 -] 800 unit PO DAILY 08/20/18 Colchicine 0.6 mg PO BID 08/20/18 Cyanocobalamin (Vitamin B-12) [Vitamin B12] 2,500 mcg PO DAILY 08/20/18 Quetiapine Fumarate [Seroquel -] 25 mg PO HS 08/20/18 Rosuvastatin Calcium [Crestor] 5 mg PO HS 08/20/18 Valacyclovir HCl [Valtrex] 1,000 mg PO DAILY 08/20/18 - Discharge Referral Referred to [facility] No
== END 2018-08-21 17:29 | disposition home or self-care (01) | DRG 872 ==
LOC: JER 17:23 → JERBED 23:27 → UNDOADMIN 08-20 01:31 → JERBED 08-20 06:23 → J5S 08-20 06:23
PROVIDERS: ADMIT Internal Medicine; ATTEND Nurse Practitioner Family
DX: A41.9 Sepsis, unspecified organism (principal); N39.0 Urinary tract infection, site not specified; M04.1 Periodic fever syndromes; F31.9 Bipolar disorder, unspecified; E78.5 Hyperlipidemia, unspecified; B00.9 Herpesviral infection, unspecified; Z72.0 Tobacco use
CPT/HCPCS: 36415; 71045-TC-FY; 74176-TC; 80053; 81003; 81015; 82550; 82553; 82803; 83605; 84484; 85025; 85610; 85651; 85730; 86140; 86850; 86900; 86901; 87040; 87086; 87186; 87804; 93005; 93010; 99285-25; J0131; J7030